=== PATIENT | female | born 1940 | race Caucasian/White ===

== ENCOUNTER 2017-06-25 15:55 | Inpatient (IN) | payer OTHER, MEDICARE ==
[~2017-06-25] VITALS: Ht 154.9 cm; Wt 68.8 kg
[2017-06-27] MEDS ORDERED: SITA50 PO (09:19)
[2017-06-27] MEDS ORDERED: LOVA40TA PO (09:19)
[2017-06-27] MEDS ORDERED: OMEP20TA PO (09:19)
[2017-06-27] MEDS ORDERED: GLIP10TA6 PO (09:19)
[2017-06-27] MEDS ORDERED: METF850T PO ×2 (09:19)
[2017-06-27] MEDS ORDERED: ENAL20TA PO (09:19)
[2017-06-30] MEDS ORDERED: TRANEXAMIC PERI-ARTICULAR 3,000 MG/NS 100 ML P-ARTICULR SCH ×2 (05:45)
[2017-06-30] MEDS ORDERED: ceFAZolin 2 GM PREMIX 50 ML IV SCH (05:45)
[2017-06-30] MEDS ORDERED: POVIDONE IODINE 5% (ANTISEPSIS KIT) 4 APPLICATIONS EACH NARE PRN (05:45)
[2017-06-30] MEDS ORDERED: CHLORHEXIDINE GLUCONATE 2 % 1 PACK (2 CLOTHS) TOPICAL PRN (05:45)
[2017-06-30] MEDS ORDERED: DEXAMETHASONE SOD PHOS 20 MG/5 ML VIAL IV PRN (05:45)
[2017-06-30] MEDS ORDERED: POVIDONE IODINE 7.5% SCRUB 118 ML BOTTLE TOPICAL SCH (05:45)
[2017-06-30] MEDS ORDERED: SODIUM CHLORID 0.9% 500 ML IV PRN (05:45)
[2017-06-30] MEDS ORDERED: CHLORHEXIDINE GLUCONATE 4% SOLN 120 ML BTL TOPICAL SCH (05:45)
[2017-06-30] MEDS ORDERED: VANCOMYCIN 1000 MG/NS 250 ML (for <70 kg) IV SCH ×2 (05:45)
[2017-06-30] MEDS ORDERED: METOPROLOL TARTRATE 25 MG TAB PO PRN (05:45)
[2017-06-30] MEDS ORDERED: INSULIN HUMAN REGULAR 1,000 UNITS/10 ML VIAL SQ PRN (05:45)
[2017-06-30] MEDS ORDERED: LACTATED RINGER'S 1000 ML IV PRN (05:45)
[2017-06-30] MEDS ORDERED: GENTAMICIN SULFATE 80 MG/2 ML VIAL ONE (06:16)
[2017-06-30] MEDS ORDERED: ZOLPIDEM TARTRATE 5 MG TAB PO PRN (06:45)
[2017-06-30] MEDS ORDERED: Post-op Orders (for Pharmacy) MISC XX ONE (06:45)
[2017-06-30] MEDS ORDERED: SODIUM CHLORIDE 0.9% FLUSH 5 ML FLUSH IVF PRN (06:45)
[2017-06-30] MEDS ORDERED: diphenhydrAMINE HCL 50 MG/ML VIAL IV PRN (06:45)
[2017-06-30] MEDS ORDERED: ONDANSETRON HCL 4 MG/2 ML VIAL IVP PRN (06:45)
[2017-06-30] MEDS ORDERED: HYDR-3288 PO (06:48)
[2017-06-30] MEDS ORDERED: ASPI81CH37 CHEW (06:49)
[2017-06-30] MEDS ORDERED: ENOX40P SQ (06:49)
[2017-06-30] MEDS: TRANEXAMIC ACID INJ 970 MG in SODIUM CHLORIDE 0.9% INJ 100 ML IV SCH ×3 (06:58→07:47)
[2017-06-30] MEDS: metFORMIN HCL 850 MG TAB PO SCH ×2 (07:00→22:37)
--- NOTE | 2017-06-30 07:06 | HHI.DCPOC ---
Discharge Care Plan Diagnosis: (1) Primary localized osteoarthrosis, lower leg Your Health Problems Are: Difficulty with ADL Goals to Promote Your Health * To prevent worsening of your condition and complications * To maintain your health at the optimal level Directions to Meet Your Goals Take your medications as prescribed Follow your dietary instruction Follow activity as directed Keep your appointments as scheduled Take your immunizations and boosters as scheduled If your symptoms worsen call your PCP, if no PCP go to Urgent Care Center or Emergency Room Smoking is Dangerous to Your Health. Avoid second hand smoke Call the 24-hour hour crisis hotline for domestic abuse at Seth Vale Jun 30, 2017 07:06
[2017-06-30] MEDS ORDERED: CPMMACHINE (07:08)
[2017-06-30] MEDS: ROPIVACAINE PERI-ARTICULAR INJECTION. P-ARTICULR SCH ×15 (08:02→14:28)
[2017-06-30] MEDS ORDERED: DO NOT ADM ANY ANTICOAGULANT DRUGS PRN (08:46)
--- NOTE | 2017-06-30 08:52 | MP ---
cc: ARIANNE CHAN M.D. DATE OF SURGERY: 06/30/2017 PREOPERATIVE DIAGNOSIS Right knee osteoarthritis. POSTOPERATIVE DIAGNOSIS Right knee osteoarthritis. PROCEDURE Right total knee arthroplasty. SURGEON Dr. Arianne Chan. ORTHOPHOTOGRAPHY TECHNICIAN Arianne Vale PA-C. ANESTHESIA Spinal with a femoral nerve block. ESTIMATED BLOOD LOSS 50 cc. COMPLICATIONS None. IMPLANTS USED DePuy Corail size 3 posterior stabilized femoral component, size 3 rotating platform tibia baseplate, size 5 mm tibial insert, size 32 mm patella. JUSTIFICATION This patient is a 76-year-old female with history of severe end-stage osteoarthritis involving the right knee. She has severe disabling pain with standing, walking, ambulation, weightbearing activities and even severe pain at rest. She has failed greater than three months of nonoperative conservative treatment to include medication therapy, injections, ambulatory assisted aids, home exercise program, activity modification and weight loss. The patient's x-rays of the right knee reveal severe end-stage osteoarthritis with [id number] joint space narrowing, subchondral sclerosis, subchondral cysts, osteophyte formation with valgus deformity. The patient was counseled as to the risks, benefits and alternatives to a total knee arthroplasty. The risks were discussed which include but are not limited to anesthesia, bleeding, infection, damage to nerves and blood vessels, pain, stiffness, failure of the components, blood clots, pulmonary embolism and even . The patient's pain is severe. She favored the benefits over the risks. She did wish to proceed with surgery. PROCEDURE IN DETAIL Written consent was obtained. The patient was identified by name, taken to the operating room and placed supine on the operating table. Spinal anesthesia was administered as well as one gram of IV vancomycin. She does have a penicillin and clindamycin allergy. The anesthesiologist also performed a femoral nerve adductor canal block. A well-padded tourniquet was placed on the right thigh. The right lower extremity was prepped and draped using isopropyl alcohol, Hibiclens solution and ChloraPrep solution. After a timeout was performed an Esmarch bandage was used to exsanguinate the right lower extremity and the tourniquet was inflated to 250 mmHg. A longitudinal incision was made over the anterior aspect of the right knee. A medial parapatellar arthrotomy was performed. A patellar resection guide was used to resect 7 mm of patella. A size 32 mm guide was placed. Three drill holes were placed and the 32 mm guide trial fit well. Attention was turned to the femur where an intramedullary guide laura was placed and the distal femoral guide was set to remove 10 mm off the distal femur, 5 degrees off the anatomic valgus axis line. An oscillating saw was used to perform the distal femoral cut. Attention was turned back to the tibia where an extramedullary tibial guide was set to remove 5 mm off the lowest portion of the medial tibial plateau. The tibial guide was pinned in place and the tibia cut was performed. A 5 mm spacer block showed full extension. Attention was turned back to the femur where the AP sizing block measured a size 3. The anterior reference 3 degree external rotation guide was used to pin a size [address] The anterior, posterior and chamfer cuts were performed. A size 3 PCL box guide was pinned in place. The PCL was box cut with an oscillating saw. The medial and lateral meniscus remnants were removed as well as bone and soft tissue debris from the posterior portion of the knee. A size 3 tibia baseplate was pinned in place. The tibia was drilled and punched. Trial components were evaluated and final components cemented in place. With the current components the leg could achieve full extension to 0 degrees and flexion to 140. No evidence of tibial lift-off. Varus-valgus balance appeared appropriate and symmetric. The tourniquet was deflated. Bovie cautery was used for hemostasis. The arthrotomy incision was closed with #1 Vicryl suture, the subcutaneous layer with 2-0 Vicryl suture, and skin was closed with Dermabond. Sterile dressings were applied. The patient tolerated the procedure well with no intraoperative complications noted. Arianne Vale, physician timber management assistant certified, was present during the entire procedure to include patient positioning and the procedure itself. The medical necessity of the physician timber management assistant was indicated in this case due to the complexity of the procedure. He assisted with appropriate manipulation of the leg and also retraction of muscle, tendon, bone and neurovascular structures. He assisted with preparation of bone and also implantation of the prosthetic replacement. MD BINDU Miller/ALEKSANDR /8:29 AM /8:35 AM
[2017-06-30] MEDS ORDERED: MIDAZOLAM HCL 2 MG/2 ML VIAL ONE (08:59)
[2017-06-30] MEDS: SODIUM CHLORIDE 0.9% FLUSH 5 ML FLUSH IVF SCH ×2 (09:00→22:37)
[2017-06-30] MEDS ORDERED: BUPIVACAINE LIPOSOME PF 1.3% 20 ML VIAL ONE (09:09)
[2017-06-30] MEDS: SODIUM CHLOR 0.9% 1000 ML INJ 1,000 ML IV SCH ×2 (09:30→16:45)
--- NOTE | 2017-06-30 09:31 | RADRPT ---
EXAM DATE/TIME: 06/30/2017 09:00 [facility] COMPARISON: No previous studies available for comparison. INDICATIONS : Post op right knee surgery. MEDICAL HISTORY : None. SURGICAL HISTORY : None. ENCOUNTER: Initial ACUITY: 1 day PAIN SCORE: 0/10 LOCATION: Right knee FINDINGS: Postsurgical features of right knee arthroplasty. Arthroplasty components are in anatomic alignment. No significant acute bony fracture. Immediate postsurgical soft tissue features. CONCLUSION: 1. Status post right knee arthroplasty in anatomic alignment without significant acute bony fracture. Urban Boone MD on June 30, 2017 at 9:29 Board Certified Radiologist. This report was verified electronically.
[2017-06-30 10:30] VITALS: BP 110/55; PULSE 81; RESP 16; TEMP 95.5; O2SAT 95
[2017-06-30] MEDS ORDERED: BISACODYL 10 MG SUPP RECTAL PRN (11:00)
[2017-06-30] MEDS ORDERED: PILL SPLITTER OTHER PRN (11:00)
[2017-06-30 12:00] VITALS: BP 126/65; PULSE 80; RESP 16; TEMP 97.6; O2SAT 98
[2017-06-30] MEDS ORDERED: PHENYLEPH/NS 1000 MCG/10 ML SYR IV ONE (12:10)
[2017-06-30] MEDS ORDERED: PROPOFOL 200 MG/20 ML AMP IV ONE (12:10)
[2017-06-30 12:35] VITALS: O2SAT 95
[2017-06-30] MEDS: glipiZIDE 10 MG TAB PO SCH ×2 (12:55→17:10)
[2017-06-30] MEDS: ACETAMINOPHEN/HYDROcodone 325 MG/7.5 MG TAB PO PRN ×2 (14:37→22:38)
--- NOTE | 2017-06-30 15:19 | PD.CONS ---
[facility] By [facility] Care Physician No Primary Care Physician Diagnoses: History of Present Illness Mrs. Gallego is a 76-year-old female. I'm seeing her today status post right total knee arthroplasty. She is doing well postop without nausea or vomiting and has good pain control. Past medical history includes diabetes, hypertension , and hyperlipidemia. She denies any other medical conditions. She is out of bed in the chair when seen. No complaints. We discussed her diabetes treatments. Metformin will be resumed this afternoon. No acute complaints from the patient. Review of Systems Constitutional: DENIES: Fatigue, Fever, Weight loss, Chills Eyes: DENIES: Blurred vision, Diplopia, Eye inflammation Ears, nose, mouth, throat: DENIES: Tinnitus, Hearing loss, Vertigo Respiratory: DENIES: Cough, Wheezing, Sputum production Cardiovascular: DENIES: Chest pain, Palpitations, Syncope Gastrointestinal: DENIES: Abdominal pain, Black stools, Bloody stools Genitourinary: DENIES: Abnormal vaginal bleeding Musculoskeletal: COMPLAINS OF: Joint pain Integumentary: DENIES: Abnormal pigmentation, Pruritus Hematologic/lymphatic: DENIES: Bruising Immunologic/allergic: DENIES: Eczema Neurologic: DENIES: Abnormal gait Psychiatric: DENIES: Anxiety, Confusion, Hallucinations Past Family Social History Allergies: Coded Allergies: clindamycin (Verified Allergy, Severe, Hypoglycemia, 06/30/17) hornet venom (Unverified Allergy, Severe, Swelling, 06/30/17) penicillin G (Unverified Allergy, Mild, SORES ON MOUTH, 06/30/17) Past Medical History Diabetes mellitus2 Hypertension Hyperlipidemia Past Surgical History Hysterectomy Tonsillectomy Appendectomy Cholecystectomy cataract surgery Reported Medications Reported Meds & Active Scripts Active Aspirin Low Dose (Aspirin) 81 Mg Chew 81 Mg CHEW BID 60 Days Lovenox Inj (Enoxaparin Sodium) 40 Mg/0.4 Ml Syr 40 Mg SQ DAILY 7 Days [place] (Hydrocodone-Acetaminophen) 7.5-325 mg Tab 1-2 Tab PO Q6H PRN 90 Days Reported Lovastatin 40 Mg Tab 40 Mg PO HS Omeprazole 20 Mg Tab 20 Mg PO DAILY Enalapril (Enalapril Maleate) 20 Mg Tab 20 Mg PO DAILY Glipizide 10 Mg Tab 10 Mg PO BIDAC Take 30 minutes before a meal Metformin (Metformin HCl) 850 Mg Tab 850 Mg PO HS With meals Metformin (Metformin HCl) 850 Mg Tab 0.5 Tab PO AC BREAKFAST With a meal Januvia (Sitagliptin Phosphate) 50 Mg Tab 0.5 Tab PO DAILY Active Ordered Medications Administered Medications Medications (Trade) Dose Ordered Sig/Antonina Route PRN Reason Start Time Stop Time Status Last Admin Dose Admin Dexamethasone Sodium Phosphate (Decadron Inj) 10 mg POLISHER BRASS PRN IV GIVE IN OR HOLDING 06/30/17 05:45 07/02/17 05:44 06/30/17 05:50 Chlorhexidine Gluconate (Hibiclens 4% Top Soln) 1 applic ONCE TOPICAL 06/30/17 05:45 07/03/17 05:44 06/30/17 05:45 Vancomycin HCl 1000 mg/Sodium Chloride 250 ml @ 250 mls/hr POLISHER BRASS IV 06/30/17 05:45 07/03/17 05:44 06/30/17 06:15 Tranexamic Acid 970 mg/Sodium Chloride 109.7 ml @ 200 mls/hr ONCE IV 06/30/17 05:45 06/30/17 16:00 06/30/17 06:58 Ropivacaine 24.63 ml/Ketorolac Tromethamine 30 mg/Epinephrine HCl 0.5 mg/ Clonidine 80 mcg/ Sodium Chloride 100 ml @ 200 mls/hr ONCE P-ARTICULR 06/30/17 05:45 06/30/17 16:00 06/30/17 08:13 Tranexamic Acid 3000 mg/Sodium Chloride 130 ml @ 260 mls/hr ONCE P-ARTICULR 06/30/17 05:45 06/30/17 16:00 06/30/17 08:24 Lactated Ringer's 1,000 ml @ 30 mls/hr Q24H PRN IV SEE LABEL COMMENTS 06/30/17 05:45 07/03/17 05:44 06/30/17 05:45 Povidone Iodine (Betadine 5% Antisepsis Kit) 1 applic POLISHER BRASS PRN EACH NARE SEE LABEL COMMENTS 06/30/17 05:45 07/03/17 05:44 06/30/17 06:00 Chlorhexidine Gluconate (Chlorhexidine 2% Cloth) 3 pack POLISHER BRASS PRN TOPICAL SEE LABEL COMMENTS 06/30/17 05:45 07/03/17 05:44 06/30/17 05:40 Glipizide (Glucotrol) 10 mg BIDAC PO 06/30/17 11:00 06/30/17 12:55 Sitagliptin Phosphate (Januvia) 25 mg DAILY PO 06/30/17 11:00 06/30/17 12:55 Sodium Chloride 1,000 ml @ 100 mls/hr Q10H IV 06/30/17 06:45 06/30/17 09:30 Acetaminophen/ Hydrocodone Bitart ([place] 7.5-325 Mg) 1 tab Q4H PRN PO PAIN LESS THAN 5 ON SCALE 06/30/17 06:45 06/30/17 14:37 Family History Diabetes mellitus type 2 in her mother Myocardial infarction in her father Social History No alcohol use No smoking No drug abuse Physical Exam Vital Signs Vital Signs Date Time Temp Pulse Resp B/P (MAP) Pulse Ox O2 Delivery O2 Flow Rate FiO2 06/30/17 12:35 95 21 06/30/17 10:00 98.3 81 16 117/58 (77) 95 Room Air 06/30/17 09:45 83 20 117/58 (77) 96 06/30/17 09:30 80 16 109/53 (71) 97 06/30/17 09:15 82 16 115/55 (75) 96 06/30/17 09:00 83 20 112/54 (73) 98 06/30/17 08:52 97.5 85 19 117/54 (75) 98 Room Air 06/30/17 06:03 98.0 87 20 152/78 (102) 99 Physical Exam GENERAL: This is a well-nourished, well-developed patient, in no apparent distress. SKIN: No rashes, ecchymoses or lesions. Cool and dry. HEAD: Atraumatic. Normocephalic. No temporal or scalp tenderness. EYES: Pupils equal round and reactive. Extraocular motions intact. No scleral icterus. No injection or drainage. ENT: Nose without bleeding, purulent drainage or septal hematoma. Throat without erythema, tonsillar hypertrophy or exudate. Uvula midline. Airway patent. NECK: Trachea midline. No JVD or lymphadenopathy. Supple, nontender, no meningeal signs. CARDIOVASCULAR: Regular rate and rhythm without murmurs, gallops, or rubs. RESPIRATORY: Clear to auscultation. Breath sounds equal bilaterally. No wheezes , rales, or rhonchi. GASTROINTESTINAL: Abdomen soft, non-tender, nondistended. No hepato-splenomegaly , or palpable masses. No guarding. MUSCULOSKELETAL: Extremities without clubbing, cyanosis, or edema. No joint tenderness, effusion, or edema noted. No calf tenderness. Negative Homans sign bilaterally. NEUROLOGICAL: Awake and alert. Cranial nerves II through XII intact. Motor and sensory grossly within normal limits. Five out of 5 muscle strength in all muscle groups. Normal speech. Assessment and Plan Problem List: (1) Diabetes mellitus type 2 in nonobese ICD Code: E11.9 - Type 2 diabetes mellitus without complications (2) Hypertension ICD Code: I10 - Essential (primary) hypertension (3) Hyperlipidemia ICD Code: E78.5 - Hyperlipidemia, unspecified (4) Primary localized osteoarthrosis, lower leg ICD Code: M17.10 - Unilateral primary osteoarthritis, unspecified knee Assessment and Plan Assessment and plan 76-year-old female status post right total knee arthroplasty Status post right total knee arthroplasty Osteoarthritis Doing well thus far Orthopedics following Continue to work with PT Continue pain treatments Postop monitoring and wound care Diabetes mellitus type 2 Resume Metformin Insulin sliding scale Diabetic diet Hypertension Follow blood pressure Resume baseline treatments Hyperlipidemia No change in baseline treatments Follow as an outpatient DVT prophylaxis Per orthopedic preference Problem Qualifiers (1) Primary localized osteoarthrosis, lower leg: Qualified Codes: M17.11 - Unilateral primary osteoarthritis, right knee Nelson Dobbs MD Jun 30, 2017 15:19
[2017-06-30 16:00] VITALS: BP 126/52; PULSE 79; RESP 16; TEMP 96.7; O2SAT 96
[2017-06-30] MEDS: VANCOMYCIN INJ 1,000 MG in SODIUM CHLOR 0.9% 250 ML INJ 250 ML IV SCH (17:09)
[2017-06-30] MEDS ORDERED: GLUCAGON 1 MG/ML VIAL OTHER PRN (17:30)
[2017-06-30] MEDS ORDERED: DEXTROSE 50% IN WATER 50 ML VIAL(D50) IV PRN (17:30)
[2017-06-30 20:40] VITALS: BP 109/55; PULSE 73; RESP 16; TEMP 96.6; O2SAT 96
[2017-06-30] MEDS: PRAVASTATIN SOD 40 MG TAB PO SCH (22:37)
[2017-06-30] MEDS: INSULIN ASPART SUPPLEMENTAL SCALE SQ SCH (22:38)
[2017-07-01] VITALS (11 sets, daily range): BP systolic 109–139; BP diastolic 43–61; PULSE 70–108; RESP 16–20; TEMP 96.3–98; O2SAT 94–100
[2017-07-01] MEDS: SODIUM CHLOR 0.9% 1000 ML INJ 1,000 ML IV SCH ×3 (02:45→22:30)
[2017-07-01] MEDS: INSULIN ASPART SUPPLEMENTAL SCALE SQ SCH ×4 (06:18→21:00)
[2017-07-01] MEDS: metFORMIN HCL 850 MG TAB PO SCH ×2 (06:18→22:35)
[2017-07-01] MEDS: glipiZIDE 10 MG TAB PO SCH ×2 (06:18→17:35)
[2017-07-01] MEDS: VANCOMYCIN INJ 1,000 MG in SODIUM CHLOR 0.9% 250 ML INJ 250 ML IV SCH (06:21)
[2017-07-01 07:44] LABS: HEMATOCRIT 35.4 % (35.0-46.0); MEAN CELL VOLUME 94.8 FL (80.0-100.0); MEAN CORPUSCULAR HEMOGLOBIN 30.8 PG (27.0-34.0); MEAN CORPUSCULAR HGB CONC 32.5 % (32.0-36.0); PLATELET COUNT 132 TH/MM3 (150-450); RED BLOOD COUNT 3.73 MIL/MM3 (4.00-5.30); RED CELL DISTRIBUTION WIDTH 13.2 % (11.6-17.2); REVIEW FLAG FINAL; WHITE BLOOD COUNT 12.7 TH/MM3 (4.0-11.0)
[2017-07-01] MEDS: PANTOPRAZOLE SOD 20 MG DELAYED RELEASE TAB PO SCH (07:53)
[2017-07-01] MEDS: ENALAPRIL MALEATE 10 MG TAB PO SCH (07:54)
[2017-07-01] MEDS: ACETAMINOPHEN/HYDROcodone 325 MG/7.5 MG TAB PO PRN ×5 (07:55→22:29)
[2017-07-01] MEDS: ENOXAPARIN SODIUM 40 MG/0.4 ML SYRINGE SQ SCH (07:56)
[2017-07-01 08:12] LABS: BICARBONATE 22.5 MEQ/L (21.0-32.0); POTASSIUM 4.1 MEQ/L (3.5-5.1)
--- NOTE | 2017-07-01 08:23 | PD.ORT.PN ---
Subjective Post Op Day #: 1 Subjective Remarks pain tolerable Objective Vitals Vital Signs Date Time Temp Pulse Resp B/P (MAP) Pulse Ox O2 Delivery O2 Flow Rate FiO2 07/01/17 04:35 96.9 71 16 121/61 (81) 98 07/01/17 00:30 97.0 70 16 115/52 (73) 97 06/30/17 23:27 18 06/30/17 20:40 96.6 73 16 109/55 (73) 96 06/30/17 16:00 96.7 79 16 126/52 (76) 96 06/30/17 12:35 95 21 06/30/17 12:00 97.6 80 16 126/65 (85) 98 06/30/17 10:30 95.5 81 16 110/55 (73) 95 06/30/17 10:00 98.3 81 16 117/58 (77) 95 Room Air 06/30/17 09:45 83 20 117/58 (77) 96 06/30/17 09:30 80 16 109/53 (71) 97 06/30/17 09:15 82 16 115/55 (75) 96 06/30/17 09:00 83 20 112/54 (73) 98 06/30/17 08:52 97.5 85 19 117/54 (75) 98 Room Air I/O 06/30/17 06/30/17 06/30/17 07/01/17 07/01/17 07/01/17 06:59 14:59 22:59 06:59 14:59 22:59 Intake Total 1150 ml 240 ml 120 ml Output Total 920 ml 400 ml 700 ml Balance 230 ml -160 ml -580 ml Intake Oral 240 ml 240 ml 120 ml IV Total 910 ml Output Urine Total 870 ml 400 ml 700 ml Estimated Blood Loss 50 ml # Bowel Movements 0 0 0 Result Diagram: 07/01/17 0711 07/01/17 0711 Objective Remarks in bed, nad dressing c/d/i neg homans nvi Assessment & Plan Ortho Post Op Day #: 1 Problem List: Assessment and Plan s/p R TKA wbat daily dressing [place] [id number] signed rx in chart f/up dr. calvin 2 weeks Seth Vale Jul 01, 2017 08:23
[2017-07-01] MEDS ORDERED: WALKER WHEELS/F1 MIS (08:25)
[2017-07-01] MEDS: SODIUM CHLORIDE 0.9% FLUSH 5 ML FLUSH IVF SCH ×2 (09:00→21:00)
--- NOTE | 2017-07-01 10:19 | HHI.PR ---
Subjective Remarks Doing well postop. Hemoglobin level is stable at 11.5. No further need for monitoring blood. She did try to ambulate on her own to use the bathroom last night and tripped on a curb in the doorway. She has slight abrasions on her left arm and left hip without any complaints of joint pains or bone pain. She did not injure her right knee. Objective Vital Signs Date Time Temp Pulse Resp B/P (MAP) Pulse Ox O2 Delivery O2 Flow Rate FiO2 07/01/17 09:20 97.4 76 20 112/43 (66) 98 07/01/17 08:59 16 07/01/17 08:00 96.3 72 16 113/52 (72) 99 07/01/17 04:35 96.9 71 16 121/61 (81) 98 07/01/17 02:30 Room Air 07/01/17 00:30 97.0 70 16 115/52 (73) 97 06/30/17 20:40 96.6 73 16 109/55 (73) 96 06/30/17 16:00 96.7 79 16 126/52 (76) 96 06/30/17 12:35 95 21 06/30/17 12:00 97.6 80 16 126/65 (85) 98 06/30/17 10:30 95.5 81 16 110/55 (73) 95 I/O 06/30/17 06/30/17 06/30/17 07/01/17 07/01/17 07/01/17 07:00 15:00 23:00 07:00 15:00 23:00 Intake Total 1150 ml 1000 ml 336 ml Output Total 920 ml 400 ml 700 ml Balance 230 ml 600 ml -364 ml Intake Oral 240 ml 240 ml 120 ml IV Total 910 ml 760 ml 216 ml Output Urine Total 870 ml 400 ml 700 ml Estimated Blood Loss 50 ml # Bowel Movements 0 0 0 Result Diagram: 07/01/17 0711 07/01/17 0711 Objective Remarks GENERAL: NAD, A&Ox3 HEAD: Normocephalic. NECK: Supple, trachea midline. No lymphadenopathy. EYES: No scleral icterus. No injection or drainage. CARDIOVASCULAR: Regular rate and rhythm without murmurs, gallops, or rubs. RESPIRATORY: Breath sounds equal bilaterally. No accessory muscle use. GASTROINTESTINAL: Abdomen soft, non-tender, nondistended. MUSCULOSKELETAL: No cyanosis, or edema. Right knee bandaged SKIN: Warm and dry. NEURO: No focal neurological deficitis. A/P Problem List: (1) Primary localized osteoarthrosis, lower leg ICD Code: M17.10 - Unilateral primary osteoarthritis, unspecified knee (2) Diabetes mellitus type 2 in nonobese ICD Code: E11.9 - Type 2 diabetes mellitus without complications (3) Hypertension ICD Code: I10 - Essential (primary) hypertension (4) Hyperlipidemia ICD Code: E78.5 - Hyperlipidemia, unspecified Assessment and Plan Assessment and plan 76-year-old female status post right total knee arthroplasty. Follow overnight without significant injury. Continue PT. No further need for monitoring CBC. Continue to monitor blood sugars. Status post right total knee arthroplasty Osteoarthritis Doing well thus far Orthopedics following Continue to work with PT Continue pain treatments Postop monitoring and wound care Diabetes mellitus type 2 Continue Metformin Insulin sliding scale Diabetic diet Hypertension Follow blood pressure Resume baseline treatments Hyperlipidemia No change in baseline treatments Follow as an outpatient DVT prophylaxis Per orthopedic preference Problem Qualifiers (1) Primary localized osteoarthrosis, lower leg: Qualified Codes: M17.11 - Unilateral primary osteoarthritis, right knee Nelson Dobbs MD Jul 01, 2017 10:19
[2017-07-01] MEDS: MORPHINE SULFATE 4 MG/ML INJ IV PUSH PRN ×2 (16:24→22:44)
--- NOTE | 2017-07-01 16:55 | RADRPT ---
EXAM DATE/TIME: 07/01/2017 16:19 [facility] COMPARISON: KNEE RIGHT LTD (1 OR 2 VWS), June 30, 2017, 9:00. INDICATIONS : Right knee pain after fall this morning. MEDICAL HISTORY : None. SURGICAL HISTORY : Total knee replacement. ENCOUNTER: Initial ACUITY: 1 day PAIN SCORE: 10/10 LOCATION: Right knee FINDINGS: A right total knee arthroplasty is noted. There is subcutaneous emphysema identified greatest mediall y. There is a small knee joint effusion with a small amount of air at this level. There is soft tissu e swelling. The tibial and femoral components appear well seated. A nondisplaced fracture the superio r portion of the patella is suspected. CONCLUSION: A patellar fracture is suspected, nondisplaced. Ramírez Childs MD on July 01, 2017 at 16:52 Board Certified Radiologist. This report was verified electronically.
[2017-07-01] MEDS: DOCUSATE SODIUM 100 MG CAP PO SCH (22:28)
[2017-07-01] MEDS: MULTIVITAMINS/MINERALS THERAPEUTIC TAB PO SCH (22:29)
[2017-07-01] MEDS: PRAVASTATIN SOD 40 MG TAB PO SCH (22:29)
[2017-07-02 04:55] VITALS: BP 133/58; PULSE 102; RESP 18; TEMP 97.8; O2SAT 96
[2017-07-02] MEDS: INSULIN ASPART SUPPLEMENTAL SCALE SQ SCH ×4 (07:00→21:16)
[2017-07-02] MEDS: ACETAMINOPHEN/HYDROcodone 325 MG/7.5 MG TAB PO PRN ×3 (07:02→16:55)
[2017-07-02] MEDS: glipiZIDE 10 MG TAB PO SCH ×2 (07:52→16:55)
--- NOTE | 2017-07-02 07:54 | PD.ORT.PN ---
Subjective Post Op Day #: 2 Subjective Remarks knee pain tolerable. had a fall yesterday in the bathroom, landing on her backside and scraping her L arm. Objective Vitals Vital Signs Date Time Temp Pulse Resp B/P (MAP) Pulse Ox O2 Delivery O2 Flow Rate FiO2 07/02/17 04:55 97.8 102 18 133/58 (83) 96 07/01/17 23:55 97.7 98 18 124/60 (81) 96 07/01/17 20:15 97.4 108 18 137/60 (85) 98 07/01/17 18:23 16 07/01/17 16:29 16 07/01/17 16:20 98.0 91 20 139/49 (79) 94 07/01/17 12:20 122/45 (70) 07/01/17 11:25 16 07/01/17 11:20 96.8 84 16 109/50 (69) 100 07/01/17 10:58 97 21 07/01/17 10:20 127/43 (71) 07/01/17 09:20 97.4 76 20 112/43 (66) 98 07/01/17 08:00 96.3 72 16 113/52 (72) 99 I/O 07/01/17 07/01/17 07/01/17 07/02/17 07/02/17 07/02/17 07:00 15:00 23:00 07:00 15:00 23:00 Intake Total 336 ml 480 ml 480 ml 480 ml Output Total 700 ml Balance -364 ml 480 ml 480 ml 480 ml Intake Oral 120 ml 480 ml 480 ml 480 ml IV Total 216 ml Output Urine Total 700 ml # Voids 3 3 4 # Bowel Movements 0 0 0 0 Result Diagram: 07/01/17 0711 07/01/17 0711 Objective Remarks in bed, nad incision no erythema, no drainage neg homans nvi Assessment & Plan Ortho Post Op Day #: 2 Problem List: Assessment and Plan s/p R TKA wbat daily dressing changes lovenox dressing changes prn L arm abrasion fall precautions d/c planning to snf [id number] signed rx in chart f/up dr. calvin 2 weeks Seth Vale Jul 02, 2017 07:54
[2017-07-02 08:14] LABS: HEMATOCRIT 33.7 % (35.0-46.0); MEAN CELL VOLUME 94.3 FL (80.0-100.0); MEAN CORPUSCULAR HEMOGLOBIN 31.3 PG (27.0-34.0); MEAN CORPUSCULAR HGB CONC 33.2 % (32.0-36.0); PLATELET COUNT 131 TH/MM3 (150-450); RED BLOOD COUNT 3.57 MIL/MM3 (4.00-5.30); RED CELL DISTRIBUTION WIDTH 13.8 % (11.6-17.2); REVIEW FLAG FINAL; WHITE BLOOD COUNT 12.6 TH/MM3 (4.0-11.0)
[2017-07-02 08:39] LABS: BICARBONATE 21.8 MEQ/L (21.0-32.0); POTASSIUM 3.8 MEQ/L (3.5-5.1)
[2017-07-02] MEDS: ENOXAPARIN SODIUM 40 MG/0.4 ML SYRINGE SQ SCH (08:39)
[2017-07-02] MEDS: DOCUSATE SODIUM 100 MG CAP PO SCH ×2 (08:40→21:10)
[2017-07-02] MEDS: ENALAPRIL MALEATE 10 MG TAB PO SCH (08:40)
[2017-07-02] MEDS: PANTOPRAZOLE SOD 20 MG DELAYED RELEASE TAB PO SCH (08:40)
[2017-07-02] MEDS: MULTIVITAMINS/MINERALS THERAPEUTIC TAB PO SCH ×2 (08:40→21:10)
[2017-07-02] MEDS: SODIUM CHLORIDE 0.9% FLUSH 5 ML FLUSH IVF SCH ×2 (08:43→21:00)
[2017-07-02] MEDS: MORPHINE SULFATE 4 MG/ML INJ IV PUSH PRN (08:44)
[2017-07-02] MEDS: SODIUM CHLOR 0.9% 1000 ML INJ 1,000 ML IV SCH ×3 (08:45→21:10)
[2017-07-02] MEDS: metFORMIN HCL 850 MG TAB PO SCH ×2 (08:51→21:00)
--- NOTE | 2017-07-02 09:18 | HHI.PR ---
Subjective Remarks Patient reports good pain control today. She had some pain overnight. No nausea or vomiting. Objective Vital Signs Date Time Temp Pulse Resp B/P (MAP) Pulse Ox O2 Delivery O2 Flow Rate FiO2 07/02/17 04:55 97.8 102 18 133/58 (83) 96 07/01/17 23:55 97.7 98 18 124/60 (81) 96 07/01/17 20:15 97.4 108 18 137/60 (85) 98 07/01/17 18:23 16 07/01/17 16:29 16 07/01/17 16:20 98.0 91 20 139/49 (79) 94 07/01/17 12:20 122/45 (70) 07/01/17 11:25 16 07/01/17 11:20 96.8 84 16 109/50 (69) 100 07/01/17 10:58 97 21 07/01/17 10:20 127/43 (71) 07/01/17 09:20 97.4 76 20 112/43 (66) 98 I/O 07/01/17 07/01/17 07/01/17 07/02/17 07/02/17 07/02/17 07:00 15:00 23:00 07:00 15:00 23:00 Intake Total 336 ml 480 ml 480 ml 480 ml Output Total 700 ml Balance -364 ml 480 ml 480 ml 480 ml Intake Oral 120 ml 480 ml 480 ml 480 ml IV Total 216 ml Output Urine Total 700 ml # Voids 3 3 4 # Bowel Movements 0 0 0 0 Result Diagram: 07/02/17 0653 07/02/17 0653 Objective Remarks GENERAL: NAD, A&Ox3 HEAD: Normocephalic. NECK: Supple, trachea midline. No lymphadenopathy. EYES: No scleral icterus. No injection or drainage. CARDIOVASCULAR: Regular rate and rhythm without murmurs, gallops, or rubs. RESPIRATORY: Breath sounds equal bilaterally. No accessory muscle use. GASTROINTESTINAL: Abdomen soft, non-tender, nondistended. MUSCULOSKELETAL: No cyanosis, or edema. Right knee bandaged SKIN: Warm and dry. NEURO: No focal neurological deficitis. A/P Problem List: (1) Primary localized osteoarthrosis, lower leg ICD Code: M17.10 - Unilateral primary osteoarthritis, unspecified knee (2) Diabetes mellitus type 2 in nonobese ICD Code: E11.9 - Type 2 diabetes mellitus without complications (3) Hypertension ICD Code: I10 - Essential (primary) hypertension (4) Hyperlipidemia ICD Code: E78.5 - Hyperlipidemia, unspecified Assessment and Plan Assessment and plan 76-year-old female status post right total knee arthroplasty. Follow overnight without significant injury. Continue PT. blood sugars better controlled. She will be safer transition back to home treatments upon discharge, regarding her diabetes. Status post right total knee arthroplasty Osteoarthritis Doing well thus far Orthopedics following Continue to work with PT Continue pain treatments Postop monitoring and wound care Diabetes mellitus type 2 Continue Metformin Insulin sliding scale Diabetic diet Hypertension Follow blood pressure Resume baseline treatments Hyperlipidemia No change in baseline treatments Follow as an outpatient DVT prophylaxis Per orthopedic preference Problem Qualifiers (1) Primary localized osteoarthrosis, lower leg: Qualified Codes: M17.11 - Unilateral primary osteoarthritis, right knee Nelson Dobbs MD Jul 02, 2017 09:18
[2017-07-02 11:12] VITALS: BP 145/65; PULSE 102; RESP 18; TEMP 97.2; O2SAT 95
[2017-07-02 12:00] VITALS: BP 122/50; PULSE 96; RESP 18; TEMP 97.6; O2SAT 96
[2017-07-02 16:00] VITALS: BP 108/53; PULSE 99; RESP 18; TEMP 97
[2017-07-02 20:10] VITALS: BP 108/56; PULSE 102; RESP 18; TEMP 97.6; O2SAT 95
[2017-07-02] MEDS: PRAVASTATIN SOD 40 MG TAB PO SCH (21:10)
[2017-07-03 01:00] VITALS: BP 122/59; PULSE 107; RESP 17; TEMP 99; O2SAT 97
[2017-07-03 04:40] VITALS: BP 125/57; PULSE 108; RESP 17; TEMP 98.9; O2SAT 96
[2017-07-03] MEDS: INSULIN ASPART SUPPLEMENTAL SCALE SQ SCH ×3 (07:00→16:00)
[2017-07-03 07:04] LABS: BICARBONATE 25.4 MEQ/L (21.0-32.0); POTASSIUM 3.9 MEQ/L (3.5-5.1)
[2017-07-03 07:06] LABS: HEMATOCRIT 29.7 % (35.0-46.0); MEAN CELL VOLUME 94.9 FL (80.0-100.0); MEAN CORPUSCULAR HEMOGLOBIN 32.1 PG (27.0-34.0); MEAN CORPUSCULAR HGB CONC 33.8 % (32.0-36.0); PLATELET COUNT 117 TH/MM3 (150-450); RED BLOOD COUNT 3.13 MIL/MM3 (4.00-5.30); RED CELL DISTRIBUTION WIDTH 13.4 % (11.6-17.2); REVIEW FLAG FINAL
[2017-07-03 08:00] VITALS: BP 124/55; PULSE 97; RESP 17; TEMP 99; O2SAT 97
[2017-07-03] MEDS: metFORMIN HCL 850 MG TAB PO SCH (08:05)
[2017-07-03] MEDS: glipiZIDE 10 MG TAB PO SCH ×2 (08:05→16:00)
[2017-07-03] MEDS: SODIUM CHLORIDE 0.9% FLUSH 5 ML FLUSH IVF SCH (09:00)
[2017-07-03] MEDS: MULTIVITAMINS/MINERALS THERAPEUTIC TAB PO SCH (09:24)
[2017-07-03] MEDS: PANTOPRAZOLE SOD 20 MG DELAYED RELEASE TAB PO SCH (09:24)
[2017-07-03] MEDS: DOCUSATE SODIUM 100 MG CAP PO SCH (09:24)
[2017-07-03] MEDS: ENALAPRIL MALEATE 10 MG TAB PO SCH (09:24)
[2017-07-03] MEDS: ACETAMINOPHEN/HYDROcodone 325 MG/7.5 MG TAB PO PRN ×2 (09:24→14:10)
[2017-07-03] MEDS: ENOXAPARIN SODIUM 40 MG/0.4 ML SYRINGE SQ SCH (09:25)
[2017-07-03] MEDS: SODIUM CHLOR 0.9% 1000 ML INJ 1,000 ML IV SCH (10:15)
[2017-07-03 11:41] VITALS: BP 117/58; PULSE 95; RESP 16; TEMP 96.4; O2SAT 96
--- NOTE | 2017-07-03 12:25 | PD.ORT.PN ---
Subjective Post Op Day #: 3 Subjective Remarks knee pain tolerable. ready to go to snf. Objective Vitals Vital Signs Date Time Temp Pulse Resp B/P (MAP) Pulse Ox O2 Delivery O2 Flow Rate FiO2 07/03/17 11:41 96.4 95 16 117/58 (77) 96 07/03/17 08:00 99.0 97 17 124/55 (78) 97 07/03/17 04:40 98.9 108 17 125/57 (79) 96 07/03/17 01:00 99.0 107 17 122/59 (80) 97 07/02/17 20:10 97.6 102 18 108/56 (73) 95 07/02/17 16:00 97.0 99 18 108/53 (71) I/O 07/02/17 07/02/17 07/02/17 07/03/17 07/03/17 07/03/17 06:59 14:59 22:59 06:59 14:59 22:59 Intake Total 480 ml 600 ml 240 ml 480 ml Balance 480 ml 600 ml 240 ml 480 ml Intake Oral 480 ml 600 ml 240 ml 480 ml # Voids 4 2 3 4 # Bowel Movements 0 1 0 0 Result Diagram: 07/03/17 0606 07/03/17 0616 Objective Remarks in bed, nad dressing c/d/i neg homans nvi Assessment & Plan Ortho Post Op Day #: 3 Problem List: Assessment and Plan s/p R TKA wbat daily dressing changes lovenox fall on Friday, ay reviewed, no obvious fx. continue with wbat and ROM as tolerated. dressing changes prn L arm abrasion fall precautions d/c planning to snf - cleared 3008 signed rx in chart f/up dr. calvin 2 weeks Seth Vale Jul 03, 2017 12:25
--- NOTE | 2017-07-03 12:40 | HHI.PR ---
Subjective Remarks Follow-up medical management for hypertension and diabetes. Pt seen and evaluated. Pt noted no headache, visual disturbance, or dizziness. She felt her blood pressure was "fine." Pt did note her blood glucose levels were "elevated" since admission. Pt stated she 'is usually between 90 and 135." She stated "pain makes my sugar go up." Pt denied fever, cough, shortness of breath, abdominal pain, chest pain, altered bowel/ bladder habits. Pt stated she was able to move her right leg/knee but "I can't put weight fully on my right foot. No new issues reported by pt. Per RN (Flori) pt without acute issues overnight or since start of shift. Objective Vitals Vital Signs Date Time Temp Pulse Resp B/P (MAP) Pulse Ox O2 Delivery O2 Flow Rate FiO2 07/03/17 11:41 96.4 95 16 117/58 (77) 96 07/03/17 08:00 99.0 97 17 124/55 (78) 97 07/03/17 04:40 98.9 108 17 125/57 (79) 96 07/03/17 01:00 99.0 107 17 122/59 (80) 97 07/02/17 20:10 97.6 102 18 108/56 (73) 95 07/02/17 16:00 97.0 99 18 108/53 (71) I/O 07/02/17 07/02/17 07/02/17 07/03/17 07/03/17 07/03/17 07:00 15:00 23:00 07:00 15:00 23:00 Intake Total 480 ml 600 ml 240 ml 480 ml Balance 480 ml 600 ml 240 ml 480 ml Intake Oral 480 ml 600 ml 240 ml 480 ml # Voids 4 2 3 4 # Bowel Movements 0 1 0 0 Result Diagram: 07/03/17 0606 07/03/17 0616 Imaging Last Impressions Knee X-Ray 07/01/17 0000 Signed Impressions: Service Date/Time: Saturday, July 01, 2017 16:19 - CONCLUSION: A patellar fracture is suspected, nondisplaced. Ramírez Childs MD Objective Remarks GENERAL: Pt encountered reclining in bed, awake and alert. SKIN: Warm and dry. HEAD: Normocephalic. EYES: No scleral icterus. No injection or drainage. NECK: Supple, trachea midline. No lymphadenopathy. CARDIOVASCULAR: Regular rate and rhythm without murmurs, gallops, or rubs. RESPIRATORY: Breath sounds equal bilaterally. No accessory muscle use. GASTROINTESTINAL: Abdomen soft, non-tender, nondistended. MUSCULOSKELETAL: No cyanosis, or edema. PSYCHIATRIC: alert and oriented x 3, no overt signs of depression/anxiety/ pleasant and cooperative. Procedures Total right knee arthroplasty Medications and IVs Current Medications Medications (Trade) Dose Ordered Sig/Antonina Route Start Time Stop Time Status Last Admin (Vasotec) 20 mg DAILY PO 07/01/17 09:00 07/03/17 09:24 (Glucotrol) 10 mg BIDAC PO 06/30/17 11:00 07/03/17 08:05 (Pravachol) 40 mg HS PO 06/30/17 21:00 07/02/17 21:10 (Glucophage) 425 mg AC BREAKFAST PO 06/30/17 07:00 07/03/17 08:05 (Glucophage) 850 mg HS PO 06/30/17 21:00 07/02/17 21:00 (Januvia) 25 mg DAILY PO 06/30/17 11:00 07/03/17 09:24 (Protonix) 20 mg DAILY PO 07/01/17 09:00 07/03/17 09:24 Sodium Chloride 1,000 ml @ 100 mls/hr Q10H IV 06/30/17 06:45 06/30/17 09:30 (NS Flush) 2 ml UNSCH PRN IVF 06/30/17 06:45 (NS Flush) 2 ml BID IVF 06/30/17 09:00 07/03/17 09:00 (Lovenox Inj) 40 mg Q24H SQ 07/01/17 08:00 07/03/17 09:25 (Morphine Inj) 3 mg Q3H PRN IV PUSH 06/30/17 06:45 07/01/17 22:44 ([place] 7.5-325 Mg) 1 tab Q4H PRN PO 06/30/17 06:45 07/01/17 22:29 ([place] 7.5-325 Mg) 2 tab Q4H PRN PO 06/30/17 06:45 07/03/17 14:10 (Theragran M Tab) 1 tab BID PO 07/01/17 21:00 08/30/17 20:59 07/03/17 09:24 (Zofran Inj) 4 mg Q6H PRN IVP 06/30/17 06:45 (Colace) 100 mg BID PO 07/01/17 21:00 07/03/17 09:24 (Ambien) 5 mg HS PRN PO 06/30/17 06:45 (Dulcolax Supp) 10 mg DAILY PRN RECTAL 06/30/17 11:00 (Benadryl Inj) 25 mg Q6H PRN IV 06/30/17 06:45 (Pill Splitter) 1 ea UNSCH PRN OTHER 06/30/17 11:00 (D50w (Vial) Inj) 50 ml UNSCH PRN IV 06/30/17 17:30 (Glucagon Inj) 1 mg UNSCH PRN OTHER 06/30/17 17:30 (NovoLOG SUPPLEMENTAL SCALE) 1 ACHS SLIDING SCALE SQ 06/30/17 21:00 07/03/17 11:00 Urinary Catheter: No A/P Problem List: (1) Diabetes mellitus type 2 in nonobese ICD Code: E11.9 - Type 2 diabetes mellitus without complications (2) Hypertension ICD Code: I10 - Essential (primary) hypertension (3) Hyperlipidemia ICD Code: E78.5 - Hyperlipidemia, unspecified (4) Primary localized osteoarthrosis, lower leg ICD Code: M17.10 - Unilateral primary osteoarthritis, unspecified knee Assessment and Plan 76-year-old female status post right total knee arthroplasty. Follow overnight without significant injury. Continue PT. blood sugars better controlled. She will be safer transition back to home treatments upon discharge, regarding her diabetes. Blood sugars noted to be labile requiring sliding scale insulin. Hypertension- controlled. Pt to be discharged later today. Medically cleared for discharge by Hospitalist team. Status post right total knee arthroplasty Osteoarthritis Doing well thus far Orthopedics following Continue to work with PT Continue pain treatments Postop monitoring and wound care Diabetes mellitus type 2 Continue Metformin Insulin sliding scale Diabetic diet Hypertension Follow blood pressure Resume baseline treatments Hyperlipidemia No change in baseline treatments Follow as an outpatient DVT prophylaxis Per orthopedic preference Case discussed with pt, Nursing staff, and Dr. Dobbs. Discharge Planning Pt reports she is to be transferred to [facility]. Problem Qualifiers (1) Primary localized osteoarthrosis, lower leg: Qualified Codes: M17.11 - Unilateral primary osteoarthritis, right knee Capo Martinez Jr. DAREN Jul 03, 2017 12:40
--- NOTE | 2017-07-08 13:17 | MD ---
cc: ARIANNE CHAN M.D. ADMISSION DATE: 06/30/2017 DISCHARGE DATE: 07/03/2017 ADMITTING DIAGNOSIS Severe degenerative osteoarthritis, right knee DISCHARGE DIAGNOSIS Severe degenerative osteoarthritis, right knee HISTORY This is a 76-year-old female who has been a longstanding patient of Dr. Arianne Chan at the [facility]. She is currently being treated for severe right knee pain which has been progressive over the last several years. Currently she states her pain is a constant severe aching sensation aggravated by weightbearing activity. She has no alleviating factors at this point in time, although in the past she has tried medications, bracing, physical therapy, home exercise program and multiple corticosteroid injections without long-lasting relief. The patient has x-ray evidence of severe degenerative osteoarthritis of the right knee. While in the office the patient was counseled on her diagnosis and treatment options. The risks, benefits and indications of all were discussed. The patient did elect proceed with surgical intervention to include a right total knee arthroplasty. Date of surgery 06/30/2017, right total knee arthroplasty. POST-OP After surgery the patient was admitted to [facility] where she received appropriate medical management, pain control, DVT prophylaxis as well as physical therapy. While in the hospital the patient had a fall on her backside. X-rays were taken of the right knee and no obvious sign of fracture was found. DISCHARGE Once being discharged from the hospital the patient is cleared to go [facility] a [facility]. She is in stable condition. She may weight bear as tolerated with range of motion as tolerated. She is to receive daily dressing changes and has been instructed on proper wound care management. She has been provided prescriptions for pain control as well as DVT prophylaxis medication. She has been provided a follow-up appointment in approximately 2 weeks from her date of surgery. The patient has asked appropriate questions which have been answered. The patient is going to be discharged today. Dictated by: Arianne Vale PA-C MD BINDU Miller/ALEKSANDR /1:42 PM /1:16 PM
== END 2017-07-03 16:17 | DRG 470 ==
LOC: HSDI 06-30 05:12 → N06B 06-30 10:09
PROVIDERS: ADMIT Orthopaedic Surgery Sports Medicine; ATTEND Orthopaedic Surgery Sports Medicine
PROC: 0SRC0J9 Replacement of Right Knee Joint with Synthetic Substitute, Cemented, Open Approach (ICD-10-PCS; principal; 2017-06-30 06:46)
DX: M17.11 Unilateral primary osteoarthritis, right knee (principal); E11.9 Type 2 diabetes mellitus without complications; I10 Essential (primary) hypertension; E78.5 Hyperlipidemia, unspecified; Z79.84 Long term (current) use of oral hypoglycemic drugs; Z79.82 Long term (current) use of aspirin
CPT/HCPCS: 73560; 80048; 82948; 85027; 86850; 86900; 86901; 94150; C1776; C9290; J0171; J0735; J1100; J1580; J1650; J1815; J1885; J2250; J2270; J2370; J2795; J3370; J7030; J7050; J7120; L1830